=== PATIENT | male | born 1935 | race Caucasian/White ===

== ENCOUNTER 2021-08-17 07:15 | Inpatient (IN) | payer MEDICARE, OTHER ==
[~2021-08-17] VITALS: Ht 170.2 cm; Wt 91.6 kg
[~2021-08-17 07:15] MED LIST: COLCRYS0.6 MG PO; FOLIC ACID1 MG PO; KEFLEX500 MG PO; LISINOPRIL10 MG PO; METOPROLOL SUCC50 MG PO; VITAMIN B-12100 MCG PO; VITAMIN D250 MC1 PO
--- OUTSIDE RECORDS SUMMARY | 2021-08-17 07:18 | XMS ---
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 Hans has no Care Guidelines for this patient. Mohit VISIT COUNT (12 MO.) 2 [facility] [place] H. TOTAL 2 NOTE: Visits indicate total known visits. [place] [place] 08/17/2021 07:16 [facility] [place] TYPE: Emergency COMPLAINT: - DIFFICULTY BREATHING 08/12/2021 17:43 [facility] [place] TYPE: Emergency COMPLAINT: - STOMACH PAIN INPATIENT VISIT TRACKING (12 MO.) 08/12/2021 17:44 [facility] [place] TYPE: Observation COMPLAINT: - ELEVATED LFTS, ACUTE RENAL INJURY, TRANSIENT HYPO DIAGNOSES: - Acute and subacute hepatic failure without coma - Essential (primary) hypertension - Acute kidney failure, unspecified - Unspecified atrial fibrillation - Hypotension, unspecified [email or web address]
--- NOTE | 2021-08-17 10:00 | NUR ---
CURRENTLY ON NC AT 4 LITERS. USED BIPAP FOR APPROX HALF HOUR.
--- NOTE | 2021-08-17 11:30 | NUR ---
PATIENT ARRIVES TO CCU VIA STRETCHER FROM ER. DE IS VISIBLE JAUNDICED UPON ARRIVAL, TACHYPNEIC, AND LABORED BREATHING. PT HELPED TO MOVE TO CCU BED X 3 PERSON ASSIST. PT STATES, "I'VE FELT BETTER" WHEN ASKED HOW HE IS FEELING. PATIENT IN AFIB ON MONITOR, HR IN THE 90s. PT HAS PERALES DRAINING CONCENTRATED ORANGE URINE. TEMP 99.9 ORAL, 100.5 PER TEMP PROBE PERALES. PT TO BE STARTED ON LR AT 200 ML/HR, AND IV CEFEPIME TO BE STARTED. PT STATES HE WISHES TO BE A DNR/DNI AND DOES NOT WANT ANYONE ELSE TO MAKE ANY DECISIONS FOR HIS MEDICAL CARE. DR. LOERA NOTIFIED. CONTINUE TO MONITOR.
--- NOTE | 2021-08-17 12:39 | NUR ---
DR. LOERA CALLED AND GIVEN AN UPDATE ON PT'S TEMP OF 102.7 PERALES TEMP, AND HIS BREATHING OF 30s PER MINUTE. TYLENOL TO BE ORDERED FOR PATIENT.
--- NOTE | 2021-08-17 13:40 | NUR ---
PATIENT'S BLOOD PRESSURE CONTINUES TO DROP. MOST RECENT PRESSURE 82/44 (55). PT STILL BREATHING FAST, 30 BREATHS/MIN. DR. LOERA UPDATED AND CPAP ORDERED. RT CALLED AND NOW IN ROOM SETTING UP CPAP. NEW IV PLACED IN LEFT AC, 1 3/4 IN 20 G CATHETER. NOREPINEPHRIN STARTED AT 4 MCG/MIN INTO THIS VEIN.
--- NOTE | 2021-08-17 14:43 | NUR ---
PATIENT WORE CPAP FROM [phone] AND TOLERATED WELL. PT ASKING TO TAKE IT OFF TO TAKE A DRINK OF WATER, WHICH HE WAS HELPED WITH. PT STILL BREATHING FAST, CURRENTLY 40-47. WILL PLACE PATIENT BACK ON CPAP SOON.
--- NOTE | 2021-08-17 17:05 | NUR ---
PATIENT WANTING TO GET UP TO BSC TO ATTEMPT TO HAVE A BM. PT VERY SLOW TO MOVE AND NEEDED 2 PERSON ASSIST TO STAND TO PIVOT. PT UNABLE TO HAVE A BM. LINEN CHANGED HOWEVER WHEN UP OUT OF BED. PT'S FEVER HAS BROKE AND NOW 99.9 PER TEMP PROBE PERALES. PT SEEMS A LITTLE BETTER COMPARED TO WHEN HE FIRST CAME IN. WILL CONTINUE TO MONITR. URINE OUTPUT REMAINS LOW AND MONITORING THIS HOURLY.
--- NOTE | 2021-08-17 19:43 | NUR ---
REPORT RECEIVED FROM FRANCIA RN, PT LAYING IN BED AT THIS TIME IVF INFUSING AT ORDERED RATE, LEVOPHED ON AT 3MCG/MIN. PT REQUESTED TO BE REPOSITIONED UP ON THE BED. SARINA CURIEL IN TO ASSIST IN REPOSITIONING PT AND THEN SITTING HIM UP IN BED. PT REPORTS NO FURTHER NEEDS AT THIS TIME WHEN ASKED, CALL LIGHT IN REACH, BED IN LOWEST POSITION. WILL CONTINUE PLAN OF CARE.
--- NOTE | 2021-08-17 20:12 | NUR ---
PT SITTING IN BED SEMIFOWLERS DROWSY BUT AWAKES EASILY AND IS ORIENTED X 4. PT ON 3L O2 NC, SPO2 95-98%. PT DENIES HAVING ANY PAIN OR SHORTNESS OF BREATH AT THIS TIME. LEVOPHED AT 3MCG/MIN, IVF INFUSING AT 200MLS/HR ORDERED (SEE MAR). VITALS TAKEN AND LEVOPHED TITRATED DOWN TO 2MCG/MIN MAPS WERE CONSISTENTLY ABOVE 70MMHG. PT THEN ASSESSED. PT EYES PERRLA AND APPEAR SLIGHTLY YELLOW. PT RESPIRATIONS AT 30-40/MIN, SHALLOW, AND PT APPEARS SHORT OF BREATH BUT DENIES DIFFICULTY BREATH OR FEELING SOB. LUNGS CLEAR IN UPPER LOBES AND DIMINISHED WITH CRACKLES IN THE BASES BILATERALLY. BOWEL TONES ACTIVE, ABDOMEN SOFT, PT DENIES PAIN WHEN PALPATED. RADIAL AND PEDAL PULSES STRONG, EXTREMITIES WARM, BRISK CAPILLARY REFILL PRESENT. PT PLACED ON CPAP AT 10 AND FIO22 OF 35% DUE TO SHALLOW RESPIRATIONS AND RESPIRATORY RATE OF 35-40. PERALES DRAINING ORANGE/YELLOW URINE WITH SEDIMENT. 90ML OBTAINED FOR THE HOUR. PT NOW RESTING IN BED ON THE CPAP AND REPORTS NO FURTHER NEEDS WHEN ASKED. CALL LIGHT IN REACH, BED IN LOWEST POSITION, IVF AND LEVOPHED INFUSING, WILL CONTINUE PLAN OF CARE.
--- NOTE | 2021-08-17 21:25 | NUR ---
DR. LOERA NOTIFIED OF PTS VITALS AND ASSESSMENT REGARDING PT BEING DROWSY BUT EASILY AROUSABLE AND ORIENTED X4, PT'S RR OF 35-40 AND NOW BEING ON THE CPAP, AND LUNG SOUNDS/CRACKLES IN THE BASES. NEW ORDERS GIVEN TO CHANGE IVF RATE TO 150 MLS/HR AND CHANGE PT'S CPAP TO BIPAP IF NEEDED. PT IVF RATE CHANGED TO 150ML/HR AT THIS TIME AND NEW BAG OF LR STARTED. PT SITTING UP IN BED ON THE CPAP AT PREVIOUS SETTINGS, SPO2 100%. PT DENIES SOB BUT RESPIRATIONS APPEAR LABORED AND ARE AT 35-40/MIN. PT REPORTS NO FURTHER NEEDS AT THIS TIME WHEN ASKED, CALL LIGHT IN REACH, BED IN LOWEST POSTIION, WILL CONTINUE PLAN OF CARE.
--- NOTE | 2021-08-17 22:50 | NUR ---
PT RESTING IN BED SLEEPING. PT AWOKE EASILY, APPEARS DROWSY, BUT IS STILL ORIENTED. PT DENIES HAVING ANY PAIN AT THIS TIME AND DENIES SHORTNES OF BREATH. RR NOTED TO STILL BE 35-40. PT HEAD OF BED LOWERED PER HIS REQUEST. IVF AND LEVOPHED STILL ON AT PREVIOUS RATES, MAPS RANGING FROM 65 TO 75 ON THE 2MCG/MIN. RT IN TO ASSESS PT, PT PLACED ON BIPAP 35% FIO2, IPAP 14 EPAP 6. PT NOTED TO HAVE PERIODS OF SLOW SHALLOW BREATHING/ HYPOEVENTILATION. SPO2 REMAINS AT 99-100%. DR. LOERA NOTIFIED AFTERWARDS THAT PT IS NOW ON THE BIPAP, RT NOTIFIED DR. LOERA OF PT'S PERIODS OF HYPOVENTILATION. NO NEW ORDERS AT THIS TIME, WILL CONTINUE PLAN OF CARE. CALL LIGHT IN REACH, BED IN LOWEST POSTION.
--- NOTE | 2021-08-17 23:15 | NUR ---
PT LAYING IN BED SLEEPING ON THE BIPAP, SETTINGS UNCHANGED, SPO2 98-100%. LEVOPHED TITRATD DOWN TO 1 MCG/MIN MAPS WERE ABOVE 70 MMHG. PT ASSESSMENT THEN COMPLETED. PT AWAKES EASILY BUT IS DROWSY. PT FOLLOWS DIRECTIONS AND IS ORIENTED. PT DENIES HAVING ANY PAIN AT THIS TIME AND REPORTS NO SOB WHEN ASKED. LUNGS CLEAR IN UPPER LOBES AND DIMINISHED IN THE BASES, PERIODS OF HYPOVENTILATION STILL NOTED, SPO2 REMAINS AT 100% (SEE CHART). PT REPORTS NO FURTHER NEEDS AT THIS TIME WHEN ASKED, PERALES DRAINING, CALL LIGHT IN REACH, BED IN LOWEST POSITION, WILL CONTINUE PLAN OF CARE.
--- NOTE | 2021-08-17 23:33 | NUR ---
PT BIPAP ALARMING, PT HAD TAKEN BIPAP OFF, SPO2 94%, PT AWAKE AND INFORMED TO LEAVE BIPAP ON, PT WILLING TO PLACE IT BACK ON, SPO2 NOW 96%, RR 30. LEVOPHED ALSO TITRATED UP TO 2MCG/MIN MAPS WERE BELOW 65. PT REPORTS NO FURTHE RNEEDS AT THIS TIME, WILL CONTINUE PLAN OF CARE.
--- NOTE | 2021-08-18 01:39 | NUR ---
PT SITTING UP IN BED AWAKE AND ALERT ON 3L O2 NC. SPO2 98-100%. PT DRINKING WATER AT THIS TIME. LEVOPHED AND IVF INFUSING AT PREVIOUS RATES. PT REPORTS NO NEEDS AT THIS TIME WHEN ASKED. WILL CONTINUE PLAN OF CARE. CALL LIGHT IN REACH, BED IN LOWEST POSITION.
--- NOTE | 2021-08-18 02:27 | NUR ---
PT LAYING IN BED ON 3L O2 NC, SPO2 100%. RR 28-35 AT THIS TIME, PT AWAKE AND ALERT. PT FORGETFUL TO MONTH BUT ORIENTED TO EVENT, SELF, YEAR, LOCATION. PT DENIES HAVING ANY PAIN OR SHORTNESS OF BREATH WHEN ASKED. PT SAT UP PER HIS REQUEST AND PROVIDED WITH ICE WATER. PERALES DRAINED OF 290ML. PT REPORTS NO FURTHER NEEDS AND IS SITTING UP IN BED FOWLERS PER HIS REQUEST DRINKING WATER. WILL CONTINUE PLAN OF CARE. CALL LIGHT IN REACH, BED IN LOWEST POSITION, IVF INFUSING ORDERED, LEVOPHED STILL AT 2MCG/MIN, MAPS RANGING 65-75 MMHG.
--- NOTE | 2021-08-18 03:20 | NUR ---
PT SITTING UP IN BED ON 3L O2 NC AT THIS EDDA, SPO2 99%. PT AWAKE AND ALERT. ASSESSMENT COMPLETED AT THIS TIME (SEE CHART). RESPIRATIONS NOTED TO BE SHALLOW AND AROUND 35-40/MIN. PT DENIES SHORTNESS OF BREATH WHEN ASKED BUT RESPIRATIONS APPEAR LABORED. PT PLACED BACK ON THE BIPAP AT THE PREVIOUS SETTINGS, FIO2 35%. PT NOW ON THE BIPAP LAYING IN BED. IVF AND LEVOPHED INFUSING AT PREVIOUS RATES. PT REPORTS NO FURTHER NEEDS WHEN ASKED, WILL CONTINUE PLAN OF CARE. CALL LIGHT IN REACH, BED IN LOWEST POSITION.
--- NOTE | 2021-08-18 05:50 | NUR ---
PT LAYING IN BED AWAKE. LAB IN TO DRAW LABS. THIS RN PULLED LABS FROM PT'S IV AND WERE GIVEN TO TRANS ROUTER. PT CURRENTLY ON THE BIPAP AT PREVIOUS SETTINGS, SPO2 100%. PERALES TEMP NOTED TO BE 99.8-99.9, AXILLARY TEMPERATURE ASSESSED AND WAS 100. PRN TYLENOL GIVEN FOR PT'S ELEVATED TEMPERATURE, PT ABLE TO TAKE PO MEDICATION AND DRINK WATER WITHOUT DIFFICULTY. PT LEFT OFF OF THE BIPAP AND PLACED ON 3L O2 NC, SPO2 REMAINS 100%, RR 24-30, PT DENIES SOB. PT REPOSITIONED UP ON THE BED, PILLOW PLACED UNDER LEFT HIP. SCD'S TAKEN OFF PER PT'S REQUEST. PERALES STILL DRAINING ORANGE URINE. PT ALERT AND ORIENTED AT THIS TIME, SKIN STILL JAUNDICED, EYES STILL HAVE A YELLOW TINT. PT'S IVF AND LEVOPHED ON AT PREVIOUS RATE, MAPS RANGING FROM 68-75 MMHG. PT PROVIDED WITH ICE WATER AT THIS TIME. PT REPORTS NO FURTHER NEEDS AT THIS TIME WHEN ASKED. CALL LIGHT IN REACH, BED IN LOWEST POSITION, WILL CONTINUE PLAN OF CARE.
--- NOTE | 2021-08-18 06:12 | NUR ---
PT SITTING UP IN BED AWAKE AND ALERT ON 3L O2 NC. PT HOB LOWERED PER PT'S REQUEST. LEVOPHED TITRATED DOWN TO 1 MCG/MIN MAPS HAVE BEEN CONSISTENTLY ABOVE 70MMHG. PT REPORTS NO FURTHER NEEDS AT THIS TIME, WILL CONTINUE PLAN OF CARE.
--- NOTE | 2021-08-18 07:00 | NUR ---
DR. LOERA NOTIFIED OF PT'S VITALS, ASSESSMENT, AND LABS. NEW ORDERS GIVEN FOR 2 GM MAGNESIUM SULFATE IV (SEE MAR). THIS RN IN, MAGNESIUM STARTED, LEVOPHED INCREASED TO 2MCG/MIN MAP WAS BELOW 65 (SEE MAR/CHART). PT REPORTS NO FURTHER NEEDS AT THIS TIME AND REMAINS ON THE BIPAP. IVF INFUSING ORDERED, WILL CONTINUE PLAN OF CARE.
--- NOTE | 2021-08-18 07:19 | EKG ---
[facility] [address] [place], [place] [address] Signed Atrial fibrillation Left bundle branch block Abnormal ECG When compared with ECG of 14-AUG-2021 10:32, No significant change was found Confirmed by ANDREIA LOERA MD ([id number]) on 08/18/2021 7:19:10 AM Electronically Signed By: ANDREIA LOERA MD 08/18/21 0719 PATIENT NAME: EDUARD ELIAS Electrocardiogram DATE OF : 37 PHYSICIAN: ANDREIA LOERA MD REPORT #: [id number] REPORT IS CONFIDENTIAL AND NOT TO BE RELEASED WITHOUT AUTHORIZATION
--- NOTE | 2021-08-18 08:00 | NUR ---
Spoke with pt. States he lives with his daughter, she is ill and has been shipped to a higher level of care. He states his sister in law Vanita Bledsoe will assist him. His son, Diego, also lives in town and can assist, but he works. Pt feels he can go home on discharge, in live s in a 1 story house without steps. He has a walk in shower and does not feel he will need assist. His sister in law will grocery shop and assist if he has any needs.
--- NOTE | 2021-08-18 08:12 | NUR ---
DR. LOERA IN TO SEE PATIENT AT 0800. PT TAKEN OFF BIPAP AND PLACED ON 3 L NC SO HE CAN TALK. PT STILL TACHYPNEIC, BREATHING 29-35. SP02 IS 95% AT THIS TIME. PT STATES HE FEELS OKAY, BUT ENDORSES WEAKNESS STILL. CLEAR LIQUID TRAY PROVIDED FOR PATIENT. HR IN THE 80-90s AT THIS TIME. TEMP PROBE PERALES READING 101.1 AND AXILLARY IS 100.6 AT THIS TIME. IV MAG AND LR INFUSING, WELL LEVOPHED AT 2 MCG/MIN. LAST BP 93/62 (70). SCDs ARE OFF AT THIS TIME. EDEMA IN LEGS IS MILD AT THIS TIME. PERALES STILL DRAINING CONCENTRATED BILI STAINED URINE. PLAN TO RETEST PATIENT FOR COVID THIS AM. CONTINUE TO MONITOR. LUNGS HAVE EXP WHEEZING THROUGHOUT.
--- NOTE | 2021-08-18 08:20 | NUR ---
RT COLLECTED RAPID COVID 19 SWAB WITH NO COMPLICATIONS AT THIS TIME.
--- NOTE | 2021-08-18 08:33 | NUR ---
PATIENT COVID SWABBED AGAIN PER RT AND TOLERATED WELL. PT EATING CLEAR LIQUID TRAY AND TOLERATING FAIRLY WELL. CONTINUE TO MONITOR CLOSELY.
--- NOTE | 2021-08-18 10:25 | NUR ---
PATIENT'S VISITOR LIBRA IN ROOM AT THIS TIME. PT STARTED ON IV FLAGYL. PATIENT HAS BEEN RESTING. SP02 IS 97% ON 2 L, THEREFORE TURNED DOWN TO 1 L NC. LAST BP 127/64 AND IF IT STAYS LIKE THAT, WILL TITRATE DOWN LEVOPHED. CURRENTLY INFUSING AT 6 MCG/MIN. CONTINUE TO MONITOR. RR STILL ELEVATED, CURRENTLY 30 BUT IS LESS TACHYPNEIC THAN BEFORE. CONTINUE TO MONITOR.
--- NOTE | 2021-08-18 11:20 | NUR ---
PATIENT'S BLOOD CULTURE RESULTS FROM BEING DRAWN 08/17/21 AT 0737 AND 0740 NOW SHOWING GRAM NEGATIVE RODS IN BOTH AEROBIC AND ANAEROBIC BOTTLES. DR. LOERA NOTIFIED IN PERSON IN CCU. PT NOW ON FLAGYL AND IV CEFEPIME. PT RESTING. PT HAS NOT NEEDED BIPAP SUPPORT YET TODAY BUT WILL CONTINUE TO MONITOR. PT CURRENTLY ON 1 L NC AND SP02 IS 94%.
--- NOTE | 2021-08-18 13:26 | NUR ---
PATIENT TURNED ONTO LEFT SIDE AND LINEN UNDERNEAT HIM WAS CHANGED. RED BOTTOM WAS PHOTOGRAPHED. PT NOTED TO HAVE SOME SMALL PINPOINT SIZED BLISTERS STARTING ON HIS LOWER BACK/COCCYX AREA. SMALL BLISTER NOTED ON BACKSIDE OF SCROTUM WELL. WILL CONTINUE TO MONITOR. SCDs ON. PT CONTINUES TO HAVE PRODUCTIVE COUGH AND SPUTUM SAMPLE SENT TO LAB. WILL CONTINUE TO MONITOR. LEVOPHED REMAINS ON A 4 MCG/MIN.
--- NOTE | 2021-08-18 14:43 | NUR ---
PATIENT HELPED TO REPOSITION TO RIGHT SIDE. PATIENT STATES HE IS PAINFUL IN HIS BACK AND ALL OVERALL. ENCOURAGED PATIENT TO KEEP MOVING FROM SIDE TO SIDE. HELPED TO POSITION WITH A PILLOW BEHIND BACK AND BETWEEN KNEES. URINE OUTPUT OVER LAST 4 HRS WAS 625, WHICH IS MARKEDLY BETTER THAN IT WAS YESTERDAY. IVF CONTINUE AT 150 ML/HR. LEVOPHED IS INFUSING AT 4 MCG/MIN AND WILL SEE ABOUT TITRATING DOWN TOLERATED. CONTINUE TO MONITOR CLOSELY.
--- NOTE | 2021-08-18 18:03 | NUR ---
DR. LOERA UPDATED ON PATIENT'S EXP WHEEZING AND LUNG SOUNDS. CHEST XRAY ORDERED. UPDATED THAT PATIENT IS ALSO STARTING TO HAVE A FEVER.
--- NOTE | 2021-08-18 19:45 | NUR ---
PATIENT REPORTING BACK PAIN IN LEFT LOWER BACK. WORSE WITH HOB UP, PATIENT REQUESTING TO LAY FLAT. ASSISTED PATIENT TO REPOSITION. PATIENT ASKING FOR MELETONIN AND SOMETHING TO HELP HIS BACK. PATIENT'S BREATHING IS MILDLY LABORED, RR 35. O2 SAT 94% ON ROOM AIR. CONGESTED WET COUGH NOTED. LUNG SOUNDS ARE COARSE. ABD IS MILDLY DISTENDED, PATIENT DENIES GI UPSET. PERALES CARE DONE, PATIENT HAS GOOD OUTPUT, COLOR IS STILL ORANGE.
--- NOTE | 2021-08-18 20:30 | NUR ---
CALLED OVER TO MS UNAVAILABLE. LEFT MESSAGE TO HAVE HER CALL CCU. 2044; SPOKE TO ABOUT PATIENT'S CONCERNS. PRN OXY AND MELETONIN ORDERED. PRN NEBS. ORDERS INPUT BY .
--- NOTE | 2021-08-18 21:00 | NUR ---
REPOSITIONED PATIENT TO LEFT SIDE. COCCYX ALYVEN PLACED ON PATIENT, PICTURES IN CHART OF RED AREAS AND SMALL BREAK DOWN. PATIENT PROVIDED PRN MEDS. WARM PACK APPLIED TO THE AREA OF PAIN ON LEFT HIP. ASSISTED PATIENT TO WASH HIS FACE AND ORAL CARE DONE. PATIENT'S BREATHING IS LABORED AND WET SOUNDING. CALL TO RT FOR BIPAP AND NEB TREATMENTS. VS STABLE, NOREPI AT 2 MCG/MIN.
--- NOTE | 2021-08-18 21:39 | NUR ---
PATIENT ON BIPAP NOW WITH NEB TREATMENT IN-LINE PER RT. PATIENT'S RR 28, SPO2 97%.
--- NOTE | 2021-08-18 22:00 | NUR ---
PATIENT CONTINUES TO REPORT PAIN 10/10 IN HIS BACK. STATES "I'VE NEVER HURT SO BAD". APPEARS SLIGHTLY RESTLESS. PATIENT OFF BIPAP, REPORTS IT UNCOMFORTABLE. SECOND DOSE OF OXY PROVIDED. ATTEMPTS TO POSITION THE PATIENT FOR COMFORT.
--- NOTE | 2021-08-18 22:49 | NUR ---
PATIENT NOT TOLERATING 3L NC. RR 38, SP02 87%. BREATHING CONTINUES TO APPEAR LABORED AND COARSE BREATH SOUNDS. PATIENT HAS HAD NO RELIEF OF LOWER BACK PAIN. POSITIONED TO HIS BACK WITH HIPS FLOATED, HOB ELEVATED. ALYVEN PLACED ON PATIENT'S NOSE FOR PADDING. BIPAP PLACED ON PATIENT AT 30% Fi02. SPO2 INCREASED TO 97%. RR 25. PATIENT'S HR 90'S, AFIB. NOREPI AT 2 MCG/MIN. MAP >65
--- NOTE | 2021-08-18 23:30 | NUR ---
PATIENT ON BIPAP, 30% Fi02. SP02 98%, RR 23. BREATHING IS UNORGANIZED AND PATIENT DOES NOT APPEAR RESTFUL. EYES ARE CLOSED, HANDS WONDERING. PATIENT ALERTS VERY EASY. CONTINUES TO REPORT BACK PAIN. NOREPI UP TO 3 MCG/MIN. IVF PER ORDER, SITE WNL. ADEQUATE URINE OUTPUT. PERALES TEMP DOWN TO 99.6 F.
--- NOTE | 2021-08-19 00:23 | NUR ---
PATIENT APPEARS TO BE SLEEPING SOUNDLY NOW. DOES NOT WAKE WITH RN IN ROOM. BIPAP IN USE, SPO2 98% WITH RR 25. NOREPI UP TO 4 MCG/MIN TO MAINTAIN ADEQUATE BP. HR 80'S, A.FIB. PERALES TEMP DOWN TO 99.1F. IV FLUIDS PER ORDER, SITE WNL. ADEQUATE URINE OUTPUT.
--- NOTE | 2021-08-19 02:19 | NUR ---
PATIENT CONTINUES TO REST PEACEFULLY. RR 22, SPO2 90% ON BIPAP 30% Fi02. ADEQUATE URINE OUTPUT. NOREPI AT 3 MCG/MIN. IV FLUIDS PER ORDER, SITE WNL. PERALES TEMP DOWN TO 98.8 F. HR 70-80, A.FIB.
--- NOTE | 2021-08-19 02:59 | NUR ---
PATIENT CONTINUES TO SLEEP SOUNDLY. VS STABLE. ADEQUATE URINE OUTPUT. CONTINUES TO WEAR BIPAP. NOREPI TITRATED TO 3 MCG/MIN. IV SITE WNL.
--- NOTE | 2021-08-19 04:29 | NUR ---
PATIENT WOKE AROUND 0400. BIPAP OFF, PATIENT TOLERATING RA. HAS MOIST BREATH SOUNDS AND LOOSE COUGH. PROVIDED WITH SIPS OF WATER. PATIENT IS MORE ALERT NOW. STILL UNCOMFORTABLE IN THE BED AND BACK HURTING. PROVIDED PATIENT 10 MG OXY. 2PA PATIENT UP TO THE RECLINER. PATIENT WAS ABLE TO STAND AND PIVOT TO THE RECLINER. POSITIONED PATIENT FOR COMFORT IN THE RECLINER. 3L NC FOR ACTIVITY. PATIENTS RR 25-30. BP CUFF SWITCHED TO FORARM CUFF ON RIGHT SIDE. LARGE BRUISING ON RIGHT UPPER ARM. NOREPI AT 3 MCG/MIN. PERALES EMPTIED. PATIENT REPORTS BEING MORE COMFORTABLE. QUICKLY FALLS TO SLEEP. CALL LIGHT IN LAP.
--- NOTE | 2021-08-19 05:30 | NUR ---
UNABLE TO DRAW FROM IV SITE FOR MORNING LABS. LAB ABLE TO DRAW VERY SMALL AMOUNT. PATIENT IS MORE ABSET, LETHARGIC. RESPONDS TO HIS NAME AND SAYS "FINE" WHEN ASKED IF HE IS OKAY. PATIENT APPEARS TO BE MODERATELY SOB, WITH HARSH COUGHING AND CHOKING. PATIENT'S SPO2 NOT READING WELL. SWITCHED TO EAR PROBE, READYS 85% ON 3L NC. PATIENT SWITCHED TO BIPAP AND RT CALLED FOR NEB. PATIENT RR 30. SPO2 97% ON BIPAP. BREATHING IS DISORGANIZED AND LABORED.
--- NOTE | 2021-08-19 06:45 | NUR ---
UPDATE PROVIDED TO . ORDERS RECEIVED FOR DC IVF AND 20 IV LASIX ONCE.
--- NOTE | 2021-08-19 09:15 | NUR ---
PATIENT RESTING COMFORTABLY IN THE CHAIR. REPOSITIONED FOR COMFORT.
--- NOTE | 2021-08-19 10:51 | NUR ---
DISCUSSED FAILED BEDSIDE SWALLOW EVALUATION WITH DR. LOERA, SPEECH THERAPY CONSULT INITIATED. SPEECH THERAPY REPORTING NO COVERAGE UNTIL SUNDAY AT THIS TIME. DR. LOERA NOTIFIED OF NO SPEECH THERAPY.
--- NOTE | 2021-08-19 11:07 | NUR ---
PATIENT LEGS ELEVATED WHILE IN CHAIR WITH PILLOWS. REPORTS BEING MORE COMFORTABLE AFTER TURNING MORE TO HIS LEFT SIDE
--- NOTE | 2021-08-19 12:48 | NUR ---
FULL BEDBATH COMPLETED, PATIENT AMBULATED WITH SHUFFLING GAIT TO BED WITH 2 ASSIST. PT WITH VESICULAR RASH ON LOWER LUMBAR REGION, APPROX 2 CM IN LENGTH. ALLEVYN PLACED ON SACRAL REGION. PATIENT IN BED CURRENTLY FOR PICC LINE PLACEMENT DUE TO CONTINUED VASOPRESSOR USE.
--- NOTE | 2021-08-19 13:55 | NUR ---
PICC INSERTION NOTE. ORDERS RECIEVED TO EVALUATE EDUARD FOR BETTER IV ACCESS. AFTER REVIEWING THE CHART AND INTERVIEWING THE PATIENT NO ABSOLUTE CONTRAINDICATIONS WERE FOUND. THE RELATIVE CONTRAINDICATION OF LOW PLATELETS WAS DISCUSSED WITH DR LOERA PRIOR TO DECISION MAKING. RISKS AND COMPLICATIONS OF PICC INSERTION WERE DISCUSSED WITH THE PATIENT WELL HIS PRIMARY CCU NURSES AND INFORMED CONSENT WAS SIGNED BY THE PATIENT PRIOR TO THE START OF THE PROCEDURE. THE RIGHT ARM WAS EVALUATED WITH U/S AND THE RIGHT BRACHIAL VEIN WAS SEEN TO BE LARGE ENOUGH TO ACCEPT A 4 FR PICC WHICH WAS ESTIMATED BY BESSIE GORDON TO TAKE UP 27% OF THE VESSEL. THE RIGHT BASILIC VEIN WAS SMALL BY COMPARISON AND A 4 FR PICC WOULD HAVE TAKEN UP GREATER THAN 50% OF THE VESSEL SO IT WAS ABANDONED. IV PRESSORS ARE RUNNING IN THE LEFT UPPER ARM VEINS AND THEY HAVE CONSTRICTED SOMEWHAT MAKING INSERTION ON THE LEFT PROBLEMATIC. THE RIGHT BRACHIAL VEIN WAS ACCESSED ON THE FIRST ATTEMPT. CARE WAS TAKEN TO AVOID THE BRACHIAL NERVE WELL BRACHIAL VEIN. THERE WERE NO DIFFICULTIES ADVANCING THE IV, GUIDEWIRE, OR INTRODUCER. THE PICC LINE ADVANCED UP THE FIRST 15 CM WITHOUT DIFFICULTY BEFORE ENCOUNTERING RESISTANCE IN THE AREA OF THE SHOULDER. MULTIPLE PASSES WERE ATTEMPTED AND A POSITION CHANGE WAS ULTIMATELY SUCESSFULL IN GETTING THE LINE TO ADVANCE TO A CENTRAL LOCATION. A CHEST XRAY WAS TAKEN AND THIS NURSE JUDGED THE PICC TO BE INSERTED TOO FAR. THE LINE WAS WITHDRAWN 3 CM AND A SECOND CXR WAS TAKEN SHOWING THE PICC IN A MORE SUITABLE LOCATION. WE AWAIT RESULTS FROM RADIOLOGY FOR THE OFFICAL TIP POSITION. THE PICC DRESSING IS NONSTANDARD. QUIK CLOT HEMOSTATIC GAUZE IS USED IN THE STERILE DRESSING INSTEAD OF THE USUAL BIO PATCH. A LIGHT PRESSURE DRESSING IS PLACED OVER THE INSERTION SITE IN AN ATTEMPT TO ENSURE HEMOSTASIS. REPORT IS GIVEN AND THE PRIMARY NURSES WILL BE CHECKING FREQUENTLY FOR EXCESSIVE BLEEDING.
--- NOTE | 2021-08-19 14:00 | NUR ---
PATIENT RESTING IN BED, TURNED ONTO LEFT SIDE WITH PILLOWS UNDER ARMS AND LEGS. NO COMPLAINTS AT THIS TIME.
--- NOTE | 2021-08-19 18:03 | NUR ---
DISCUSSED PATIENT CASE WITH DR. CAMPBELL. PATIENT IN ROOM RESTING, TURNED TO BACK TO VIEW VESICULAR RASH IN LUMBAR/SACCRAL REGION. PENDING ANTICIPATED ORDERS PER MD.
--- NOTE | 2021-08-19 18:20 | NUR ---
Update from rn, pt had PICC placed. Unchanged. No plan for dc today.
--- NOTE | 2021-08-19 23:58 | NUR ---
PT COUGHS AFTER ALL ORAL INTAKE. MEDICATIONS CRUSHED AND ADMINISTERED IN PUDDING. PT COMPLAINS OF 9/10 BACK PAIN, PT PROMPTLY FALLS ASLEEP AND SNORES BEFORE RN LEAVES ROOM. NO ADDITIONAL PAIN MEDICAION GIVEN AT THIS TIME. PT REMAINS ON LEVOPHED TO MAINTAIN MAPS ABOVE 65, CURRENLTY INFUSING AT 4 MCG/MIN. WILL CONTINUE TO MONITOR.
--- NOTE | 2021-08-20 00:30 | NUR ---
PT ABDOMEN MODERATELY DISTENDED, HYPOACTIVE BOWEL TONES. ENEMA ORDERED. PT UP TO CHAIR FOR PAIN CONTROL.
--- NOTE | 2021-08-20 06:56 | NUR ---
PT BACK TO BED. ABDOMEN IS SEVERLY DISTENDED AND FIRM. ENEMA ADMINISTERED AND SCHEDULED BOWEL CARE ORDERED.
--- NOTE | 2021-08-20 08:48 | NUR ---
LEVOPHED ON STANDBY AT THIS TIME. LAST BP 129/56 (71). WILL CONTINUE TO MONITOR CLOSELY.
--- NOTE | 2021-08-20 09:22 | NUR ---
IN PATIENT'S ROOM SINCE 0800 THIS AM PROVIDING CARES. PATIENT WAS LAYING ON LEFT SIDE AND HAD RECENTLY RECENTLY ENEMA. PT DID HAVE SMALL AMOUNT OF LIQUID STOOL IN ATTENDS AND THIS WAS CHANGED. PATIENT THEN REPOSITIONED IN BED X 2 PERSON ASSIST AND SAT FULLY UPRIGHT. PT STILL C/O PAIN IN HIS BACK AND UNCOMFORTABLE IN THE BED. PT RATES PAIN 9/10. STILL SLIGHLTY TOO EARLY TO GIVE NEXT DOSE OF PAIN MEDICATION BUT WILL GIVE IT SOON. SCDs ON. PT IS LESS JAUNDICED THEN LAST TIME THIS RN CARED FOR PATIENT ON SUNDAY. PT WAS ON 2 MCG/MIN OF LEVOPHED BUT THIS WAS TITRATED OFF AROUND 0830 DUE TO BLOOD PRESSURES BEING SATISFACTORY. HR IN THE 80s AFIB. IV IN LEFT AC D/C DUE TO IRRTATION AND PALPABLE HARDNESS TO VEIN BP CUFF RIGHT OVERTOP OF THIS IV SITE. PT ABLE TO DRINK WATER WHILE SITTING STRAIGHT UP WITHOUT ANY DIFFICULTY OF TROUBLE SWALLOWING. PT ALSO FED SELF SOME YOGURT THIS AM AND DID WELL WITH THIS. PT ABLE TO SWALLOW PILLS W/O DIFFICULTY. CALL LIGHT WITHIN REACH. WARM BLANKET PROVIDED. WILL CONTINUE OT MONITOR CLOSELY.
--- NOTE | 2021-08-20 10:09 | NUR ---
MARGARET PLACED BACK ON LEVOPHED AT 2 MCG/MIN AT THIS TIME. PT'S SISTER IN [facility] IN ROOM VISITING WITH PATIENT AND GIVEN AN UPDATE. PT RESTING AT THIS TIME. LAST PB WAS 83/45 (58). SCDs ON. CONTINUE TO MONITOR CLOSELY.
--- NOTE | 2021-08-20 12:03 | NUR ---
LEVOPHED TITRATED UP TO 3 MCG/MIN AT THIS TIME. LAST MAP WAS 64. PT RESTING AND APPEARS FAIRLY COMFORTABLE, HOWEVER WHEN ASKED, HE STATES HE IS STILL HAVING PAIN IN HIS BACK. WILL OFFER PAIN MEDICATION. CONTINUE TO MONITOR. ASSESSMENT COMPLETE AND UNCHAGNED FROM PREVIOUS THIS AM.
--- NOTE | 2021-08-20 13:17 | NUR ---
DR. CAMPBELL IN ROOM TO SEE PATIENT. PLAN OF CARE BEING DISCUSSED. PROSTATE EXAM PERFORMED BY DR. CAMPBELL. PT TO RECEIVE ADDITIONAL DOSE OF IV LASIX AND PO POTASSIUM. PT REMAINS ON ROOM AIR. LEVOPHED IS CURRENTLY INFUSING AT 3 MCG/MIN. PT NOW LAYING ON LEFT SIDE. SCDs ON.
--- NOTE | 2021-08-20 14:31 | NUR ---
PATIENT GIVEN 20 MG IV LASIX AND 40 MEQ PO POTASSIUM. PT TOLERATED WELL. PERALES DRAINING CLEAR YELLOW URINE AT THIS TIME. CONTINUE TO MONITOR.
--- NOTE | 2021-08-20 15:22 | NUR ---
PATIENT RESTING AT THIS TIME. URINE IS CLEAR AND MORE DILUTE THAN BEFORE AFTER LASIX ADMIN. PT ON 4 MCG/MIN OF LEVOPHED, BUT MAY BE ABLE TO TITRATE BACK SINCE LAST BP WAS 103/54 (71). WILL CONTINUE TO MONITOR. PT REMAINS ON ROOM AIR AND SP02 IS 94%.
--- NOTE | 2021-08-20 16:30 | NUR ---
THIS RN IN TO ASSESS PATIENT. PATIENT HAS BEEN RESTING IN BED. PATIENT HAS FAMILY AT THE BEDSIDE AT THIS TIME. PATIENT DENIES ANY NEEDS. BREATH SOUNDS CLEAR. PATIENT REMAINS ON RN. BOWLE TONES ACTIVE. NO BM NOTED. PERALES EMPTIED. WILL CONTINUE TO CLOSELY MONITOR.
--- NOTE | 2021-08-20 19:02 | NUR ---
PATIENT AT THIS TIME. PT REMAINS ON LEVOPHED AT 2 MCG/MIN. PER DR. CAMPBELL, TITRATE OFF LEVOPHED TO MAP >65 OR SBP >90. LAST BP 99/59 (69). SCDs ON.
--- NOTE | 2021-08-20 19:43 | NUR ---
PT RESTING QUIETLY AND WAKES TO EASILY TO VOICE. LUNG SOUNDS COARSE THROUGHOUT, NONPRODUCTIVE COUGH. PT IS ON RA WITH SATS MAINTAINING HIGH 90S. ABDOMEN IS DISTENDED, SOFT, WITH HYPERACTIVE BOWEL TONES. PT REMAINS ON LEVOPHED TO MEET ORDER PERAMITERS. WILL TITRATE APPROPRIATE. PT REPORTS 3/10 PAIN BUT DENIES NEED FOR INTERVENTION AT THIS TIME. EDUCATED ON MONITORING PAIN AND LET RN KNOW BEFORE PAIN BECOMES UNBEARABLE. PT VERBALIZES UNDERSTANDING AND DRIFT TO SLEEP AFTER ASSESSMENT. WILL CONTINUE TO MONITOR.
--- NOTE | 2021-08-20 21:32 | NUR ---
PT UP TO CHAIR WITH FWW FOR COMFORT.
--- NOTE | 2021-08-20 23:52 | NUR ---
PRN OXYCODONE ADMINISTERED FOR PAIN. WARM BLANKETS PROVIDED. PT DENIES FURTHER NEEDS AT THIS TIME. WILL CONTINUE TO MONITOR.
--- NOTE | 2021-08-21 00:07 | NUR ---
LEVOPHED TITRATED OFF AT THIS TIME. WILL CONTINUE TO MONITOR AND RESTART INDICATED.
--- NOTE | 2021-08-21 01:25 | NUR ---
PT HEARD MOANING. PT REPORTS PAIN THAT IS NOT IMPROVED WITH CURRENT PRN OXYCODONE ORDER. PT ASKED RN SEVERAL TIMES TONIGHT TO JUST LET HIM . RN STATED SHE WOULD NOTIFY MD TO INCREASE PAIN MEDICATION. PT STATES HE WANTS RN TO GIVE HIM "SOMETHING TO KILL ME". DR. CAMPBELL NOTIFIED AND OXYDONDONE ORDERS MODIFIED, SEE ORDERS.
--- NOTE | 2021-08-21 02:05 | NUR ---
LEVOPHED INFUSION RESTARTED FOR CONTINUED BOARDERLINE LOW BPS. BP NOW 84/31 WITH MAP OF 47. PT IS NOW RESTING QUIETLY EYES CLOSED 40 MINUTES POST 5 MG OXYCODONE.
--- NOTE | 2021-08-21 06:25 | NUR ---
LEVOPHED TITRATED OFF AT THIS TIME. PT REMAINS SLEEPING. ABDOMEN APPEARS LESS DISTENDED SINCE LAST ASSESSMENT, SOFT, ACTIVE BOWEL TONES. WILL CONTINUE TO MONITOR.
--- NOTE | 2021-08-21 06:51 | NUR ---
LEVOPHED RESTARTED D/T SBP BELOW 90 AND MAP BELOW 65
--- NOTE | 2021-08-21 07:31 | NUR ---
REPORT REC'D FROM DIVING BOARD ASSEMBLER AND PLAN OF CARE RESUMED. PATIENT SLEEPING AT THIS TIME. LEVOPHED TURNED TO STANDBY AT 0728 AND WAS INFUSING AT 1 MCG/MIN. BP 104/50 (65). PT TO HAVE LABS DRAWN THIS AM AROUND 0800. CONTINUE TO MONITOR CLOSELY.
--- NOTE | 2021-08-21 08:10 | NUR ---
PATIENT ASLEEP AT THIS TIME. PT DOES AWAKEN EASILY TO VOICE, BUT DRIFTS BACK TO SLEEP FAIRLY QUICKLY. PT REMAINS OFF LEVOPHED AT THIS TIME AND LAST BP 92/61 (69). PT'S BLOOD DRAWN AT 0800 AND DOSE OF CORTOSYN GIVEN. NEXT LAB DRAWN AT 0837, AND THEN AGAIN AT 0907. PERALES DRAINING CONCENTRATED URINE.
--- NOTE | 2021-08-21 10:19 | NUR ---
PATIENT CONTINUES TO REST AT THIS TIME. PT ABLE TO TAKE HIS MEDS THIS AM WITH STRAWBERRY ENSURE, AND TOLERATED WELL. PT ATE 10% OF HIS BREAKFAST BUT DIDN'T WANT ANY MORE THAN THAT. WILL CONTINUE TO MONITOR.
--- NOTE | 2021-08-21 10:55 | NUR ---
DR. CAMPBELL IN ROOM TO SEE PATIENT AT THIS TIME. PT'S SON IN [place] IN ROOM VISITING WITH PATIENT.
--- NOTE | 2021-08-21 13:17 | NUR ---
PATIENT UP TO CHAIR X2 PERSON ASSIST. PT MOVING FAIRLY WELL, BUT STILL OVERALL TIRED. PHYS THERAPY TO COME WORK WITH PATIENT TODAY. PT DOES NOT WANT TO EAT LUNCH. URINE IS VERY CONCENTRATED. WILL CONTINUE TO MONITOR.
--- NOTE | 2021-08-21 14:29 | NUR ---
PHYS THERAPY IN ROOM WITH PATIENT AT THIS TIME. PT WANTING TO GO BACK TO BED.
--- NOTE | 2021-08-21 14:35 | NUR ---
DR. CAMPBELL NOTIFIED OF URINE OUTPUT OVER THE LAST 4 HOURS WHICH WAS 135 ML. PT'S ORAL INTAKE TODAY SEEMS SLIGHTLY LESS THAN YESTERDAY. PT REMAINS OFF LEVOPHED. WILL CONTINUE TO MONITOR.
--- NOTE | 2021-08-21 14:52 | NUR ---
PATIENT BACK TO BED AND NOW RESTING. SP02 IS 97% ON ROOM AIR. 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 LAST BP 104/48 (63). LEVOPHED OFF. SCDs ON. CALL LIGHT WITHIN REACH. BLANKETS PROVIDED.
--- NOTE | 2021-08-21 16:09 | NUR ---
PATIENT RESTING AT THIS TIME. PT DENIES HAVING ANY PAIN, AND DRIFTS BACK TO SLEEP EASILY AFTER A COUPLE OF MINUTES. ASSESSMENT UNCHANGED FROM PREVIOUS. LEVOPHED REMAINS OFF AND PT REMAINS ON ROOM AIR. URINE OUTPUT REMAINS LOWER AND CONCENTRATED. CONTINUE TO MONITOR.
--- NOTE | 2021-08-21 19:51 | NUR ---
PT RESTS QUIETLY EYES CLOSED. DROWSY BUT ORIENTED TO PERSON, PLACE, MONTH/YEAR. PT DOESN'T REMEMBER REASON FOR BEING IN HOSPITAL BUT UNDERSTANDS THAT HE IS ILL. ABDOMEN IS MODERATELY DISTENDED WITH ACTIVE BOWEL TONES. NONTENDER ON PALPATION. COARSE DIMINISHED LUNG SOUNDS THROUGHOUT. PT ON RA WITH SATs 98-99%. BPs LOWER, BUT MEETING GOALS AND LEVOPHED REMAINS OFF AT THIS TIME. PT DENIES PAIN. WILL CONTINUE TO MONITOR.
--- NOTE | 2021-08-21 23:59 | NUR ---
PT REPOSITIONED AND COMPLAINS OF 5/10 BACK PAIN. PRN OXYCODONE ADMINISTERED. LUNG SOUNDS IMPROVED, MOSTLY CLEAR EXCEPT FOR CRACKELS BILAT POSTERIOR BASES. VSS. WILL CONTIUE TO MONITOR.
--- NOTE | 2021-08-22 03:33 | NUR ---
RN CHECKED ON PT WHO WAS LAYING AWAKE STARING AT WALL. PT STATES "UNPLUG ME, LET ME ", "IT'S TIME TO GO". PT REPEATS THESE WORDS SEVERAL TIMES TO RN. RN PROVIDED EMOTIONAL SUPPORT AND REASSURED PT THAT IF HIS HEART STOPS WE WILL NOT ATTEMPT TO SAVE HIM PER HIS DNR/DNI STATUS. PT DENIES PAIN AND DECLINES REPOSITIONING IN BED, STATES "JUST LEAVE ME HERE AND LET ME ". TONIGHT IS THE THIRD CONSECUTIVE NIGHT THAT PT HAS PLEADED TO THIS RN FOR HIS LIFE TO END. PT WOULD BENEFIT FROM GOALS OF CARE DISCUSSION. WILL DISCUSS RECOMMENDATION WITH DAY SHIFT RN FOR FOLLOW UP AND SEND SECURE MESSAGE TO PROVIDER.
--- NOTE | 2021-08-22 04:55 | NUR ---
RN ASKED PT "WHEN YOU GO HOME, IF YOU GET SICK WOULD YOU LIKE TO COME BACK TO THE HOSPITAL, OR STAY HOME AND PASS AWAY AT HOME?". PT STATES "I WOULD WANT TO STAY HOME AND ". RN ASKED ABOUT HIS KNOWLEDGE OF HOSPICE AND RN EXPLAINED THIS SERVICE. PT STATES THAT HIS WAS ON HOSPICE AND THAT HE WOULD LIKE TO DISCUSS THIS OPTION. PT VOICED CONCERN ABOUT NOT KNOWING HOW TO START THIS PROCESS, RN ASSURED PT THAT HIS HEALTHCARE TEAM WOULD ASSIST SHOULD HE MAKE THE DECISION TO GO ON HOSPICE. PT DENIES FURTHER QUESTIONS AT THIS TIME.
--- NOTE | 2021-08-22 05:21 | NUR ---
OVERNIGHT PT HAS REMAINED IN SINUS RHYTHM WITH A 1ST DEGREE BLOCK, BBB, NOTCHED P WAVES, AND OCCATIONAL PACs AND PVCs.
--- NOTE | 2021-08-22 07:20 | NUR ---
ADMINISTRATIVE APPEALS TRIBUNAL MEMBER IN ROOM PERFORMING ECHO AT THIS TIME. PLAN OF CARE RESUMES. PT REMAINS IN A SINUS RHYTHM, HR 80s, 1ST DEGREE AV BLOCK. LAST BP AT 0600 WAS 116/59(75). CONTINUE TO MONITOR.
--- NOTE | 2021-08-22 08:30 | NUR ---
IN ROOM FOR ASSESSMENT, VITALS, BREAKFAST, AND SHORER. PT STATES, "JUST PULL THE PLUG ON ME, I WANT TO BE DONE WITH ALL OF THIS." DISCUSSED THIS WITH PATIENT AT LENGTH. PT REMAINS ALERT AND ORIENTED. PATIENT THEN HELPED UP TO BEDSIDE COMMODE X1 PERSON ASSIST, AND THEN INTO CHAIR. PT UNABLE TO HAVE A BM BUT DID HAVE A SMEAR. PT ABLE TO TAKE A FEW BITES OF BREAKFAST AND DRINK AN ENSURE, BUT NOT VERY HUNGRY. CALL LIGHT WITHIN REACH. PT WANTING SILENCE, NO TV, NOTHING FURTHER AT THIS TIME.
--- NOTE | 2021-08-22 08:51 | NUR ---
DR. CAMPBELL IN ROOM TO SEE PATIENT AT THIS TIME. PT'S SISTER IN [facility] IN ROOM WELL.
--- NOTE | 2021-08-22 09:26 | NUR ---
PATIENT'S PERALES CATH D/C AND [facility] PROVIDED. PT TOLERATED WELL. PT ALSO GIVEN A DOSE OF LACTULOSE. PT'S SISTER IN LAW REMAINS IN ROOM. CONTINUE TO MONITOR.
--- NOTE | 2021-08-22 09:47 | NUR ---
OT IN ROOM WORKING WITH PATIENT. PATIENT'S SISTER IN [place] LEAVES. PT WANTING TO GET BACK TO BED AFTER WORKING WITH OT. CONTINUE TO MONITOR.
--- NOTE | 2021-08-22 10:47 | NUR ---
PATIENT SITTING UP IN RECLINER. VITALS CHARTED. CALL LIGHT IN EASY REACH
--- NOTE | 2021-08-22 11:03 | NUR ---
PATIENT REMAINS SITTING UP IN CHAIR AT THIS TIME. LAST BP 114/55 (72) AND HR IN THE 80-90s, 1ST DEGREE AV BLOCK. CONTINUE TO MONITOR.
--- NOTE | 2021-08-22 11:15 | NUR ---
PATIENT USED CALL LIGHT TO ASK FOR ASSIST HELP TO BSC FOR BM. PATIENT GIVEN CALL LIGHT TO CALL WHEN FINISHED ON BSC.
--- NOTE | 2021-08-22 11:25 | NUR ---
CALL LIGHT ANSWERED, PATIENT FINISHED ON BSC, HAD LARGE BM, 2PA BACK TO CHAIR. CALL LGIHT IN EASY REACH
--- NOTE | 2021-08-22 12:21 | NUR ---
PATIENT UP TO BSC AGAIN TO HAVE ANOTHER BM. PT'S BM THIS TIME WAS MORE LIQUID THAN FORMED, BUT STILL HAD SOME FORMED AMOUNT IN IT. 2ND DOSE OF LACTULOSE TO BE HELD. PT ONLY ATE A COUPLE OF BITES OF HIS LUNCH, BUT IS DRINKING AN ENSURE. ASSESSMENT UNCHANGED. EDEMA IN DEPENDENT AREAS, LIKE HIPS, BACK/TORSO AND UPPER THIGHS. SCROTUM AND PENIS REMAINS EDEMATOUS WELL. PERALES D/C AROUND 1030 AND PT YET TO VOID. CONTINUE TO MONITOR. PT DENIES NEED TO VOID.
--- NOTE | 2021-08-22 12:41 | NUR ---
PATIENT AWAKE IN CHAIR, VITALS AND I&OS CHARTED. CALL LIGHT IN EASY REACH
--- NOTE | 2021-08-22 14:07 | NUR ---
PT SITTING IN CHAIR, ENJOYING THE SUNSHINE. PT IS [place], ANSWERS QUESTIONS APPROPRIATELY. PT HAS NO C/O PAIN AT THE MOMENT. DIDN'T SLEEP WELL. PT ALLOWED ME TO PRAY FOR HIM. GAVE G.POST AND BLESSING. WILL FOLLOW
--- NOTE | 2021-08-22 14:57 | NUR ---
PATIENT INCONTINENT OF STOOL. SAT ON BSC TO FINISH BM. BEDBATH AND GORDON CARE PROVIDED, DESENEX POWDER ALPPLIED IN GROIN AREA. PATIENT HAS NOT VOIDED SINCE PERALES WAS REMOVED EARLIER TODAY, BLADDER SCANNED AT THIS TIME BY SARINA CARTER. PATIENT BACK TO BED, LYING ON LEFT SIDE, C/O BACK PAIN. RN AWARE. CALL LIGHT IN EASY REACH, NO OTHER NEEDS AT THIS TIME
--- NOTE | 2021-08-22 15:28 | NUR ---
PATIENT UNCOMFORTABLE IN THE BED AND WANTING TO ROLL FROMHIS LEFT SIDE TO HIS BACK. PT RATES HIS PAIN IN HIS BACK A 7/10 AND WILLING TO TAKE PAIN MEDICATION AT THIS TIME ( SEE EMAR). PT SAT ALL THE WAY UP IN BED AND TOLERATED THIN LIQUIDS W/O DIFFICULTY. WILL CONTINUE TO MONITOR CLOSELY. PT REMAINS ON ROOM AIR. LAST BP 115/60 (77). PT DUE TO VOID BUT UNABLE TO OF YET. BLADDER SCANNED FOR 355 ML AT 1500.
--- NOTE | 2021-08-22 15:45 | NUR ---
Update from RN. Pt was able to have a BM today. Feeling better and is inproving. Was able to work with PT/OT.
--- NOTE | 2021-08-22 17:21 | NUR ---
SPEECH THERAPY IN TO SEE PATIENT. UNSURE OF RECOMMENDATIONS THIS RN DID NOT GET A CHANCE TO DISCUSS WITH HER.
--- NOTE | 2021-08-22 18:22 | NUR ---
PATIETN ATE A COUPLE BITES OF HIS FOOD, BUT NOT VERY MUCH. PT DID DRINK A STRAWBERRY ENSURE W/O DIFFICULTY. DIET ORDER PER SPEECH THERAPY CAN BE MINCED AND MOIST AND THIN LIQUIDS. PT REMAINS SITING UPRIGHT IN BED PER HIS REQUEST. CONTINUE TO MONITOR.
--- NOTE | 2021-08-22 19:34 | NUR ---
PT IS VERY SLEEPY AFTER BEING UP IN CHAIR TODAY. WAKES APPROPRIATELY. ABDOMEN IS ROUNDED AND SOFT. HYPERACTIVE BOWEL TONES. DEPENDENT EDEMA IN EXTREMITIES, BACKSIDE, THIGHS. VSS, PT REMAINS ON RA WITH SATs HIGH 90S. MILDLY TACHYPNEIC IN HIGH 20S BUT WORK OF BREATHING IS NORMAL. WILL CONTINUE TO MONITOR.
--- NOTE | 2021-08-22 22:24 | NUR ---
PT CALLS APPROPRIATELY TO USE URINAL. DENIES PAIN AND NEED FOR REPOSITIONING AT THIS TIME. WILL CONTINUE TO MONITOR.
--- NOTE | 2021-08-23 04:10 | NUR ---
PT HAS REMAINED ALSEEP THROUGHOUT NIGHT EXCEPT TO VOID. VSS. WILL CONTINUE TO MONITOR.
--- NOTE | 2021-08-23 05:10 | NUR ---
PT UP TO CHAIR. EXTREMETIES ELEVATED WITH PILLOW SUPPORT. [facility] C[facility] PROVIDED. PT DOES BECOME SOB AFTER GETTING TO EDGE OF BED WITH ASSISTANCE. PT UP WITH 2 PER PT REQUEST AND FWW, PT STANDS WITHOUT NEED FOR NURSING TO BEAR ANY OF HIS WEIGHT. DENIES NEEDS AT THIS TIME. WILL CONITNUE TO MONITOR.
--- NOTE | 2021-08-23 08:15 | NUR ---
Spoke with Will this am. Jaundiced today. Discussed if he feels he can go home, since his daughter is hospitalized. He states he needs to go some place. Asked if he would go to Shelter and he agrees. Will work on this when he gets closer to dc and is out of ccu.
--- NOTE | 2021-08-23 08:20 | NUR ---
PATIENT SITTING UP IN CHAIR UPON ASSESSMENT. PATIENT WAS RESTING WITH EYES CLOSED, BUT AWAKENS EASILY. PT STATES HE IS FEELING PRETTY GOOD AND ASKS, "WHAT DID THE BLOOD WORK SHOW THIS MORNING? WHAT ABOUT THE HEPATITIS?" PATIENT STATES THE YEAR INCORRECTLY, AND UNSURE OF THE MONTH, BUT AWARE THAT HE IS IN [facility] AND THAT HE IS SICK. REORIENTED TO DATE, TIME, AND CURRENT EVENTS RELATED TO HIS ILLNESS. ENCOURAGING PATIENT TO EAT THIS AM, AND TO FEED HIMSELF. PT HAS DIFFUSE EDEMA IN DEPENDENT AREAS, LEGS, THIGHS, HIPS, LOWER ABDOMEN, PENIS AND SCROTUM, ELBOW AREAS. PT STATES HIS PAIN IS WELL CONTROLLED AT THIS TIME. PT NOW FEEDING HIMSELF SOME CREAM OF WHEAT AND DRINKING A STRAWBERRY ENSURE. LAST BP 113/59 (76). LUNGS ARE CLEAR WITH DIMINISHED LOWER BASES POSTERIORLY. WILL CONTINUE TO MONITOR.
--- NOTE | 2021-08-23 09:00 | NUR ---
DR. CAMPBELL IN ROOM TO EVAL PATIENT. PATIENT WILL GO DOWN FOR MRCP TODAY OF LIVER TO EVAL FOR ANY POTENTIAL RETAINED STONES THAT MIGHT BE CAUSING HIS INCREASE IN LIVER ENZYMES AND INCREASED JAUNDICE. PT AGREEABLE AND ABLE TO FILL OUT SCREENIN EVAL. PT DOES NEED TO BE NPO UNTIL THIS SCAN. POTENTIAL TRANSFER TO MED/SURG THIS AFTERNOON.
--- NOTE | 2021-08-23 09:25 | NUR ---
PHYS THERAPY IN ROOM WORKING WITH PATIENT.
--- NOTE | 2021-08-23 09:42 | NUR ---
THIS MONITORING AND EVALUATION ADVISOR IN TO ASSIST P/T WITH PATIENT'S AMBULATION IN ROOM.
--- NOTE | 2021-08-23 11:54 | NUR ---
PATIENT REMAINS SITTING UP IN CHAIR AND DENIES NEEDS AT THIS TIME. PT HAS WORKED WITH BOTH PHYS THERAPY AND OCCUPATIONAL THERAPY TODAY. PT'S SON IN [place] HAS COME AND LEFT FOR A VISIT. PT TO GO DOWN FOR MRCP AT 1300 AND REMAINS NPO UNTIL THAT SCAN. IV MAG COMPETED AND PICC LINE FLUSHED AND SALINE LOCKED. CONTINUE TO MONITOR.
--- NOTE | 2021-08-23 14:53 | NUR ---
PATIENT RETURNS FROM [facility] AND WANTING TO GET BACK TO BED. PATIENT A 2 PERSON ASSIST AND INTO BED NOW TO REST. PT STATES HE IS TIRED AND WANTING TO REST. FOOD ORDERED FOR PATIENT BUT HE IS NOT VERY HUNGRY. WARM BLANKET PROVIDED BY [employer] USER INTERFACE DEVELOPER. CONTINUE TO MONITOR.
--- NOTE | 2021-08-23 16:17 | NUR ---
REPORT GIVEN TO SARINA HAYNES WHO WILL RESUME CARE OF PATIENT ON MED/SURG ROOM 121. PATIENT VOIDS TO URINAL 300 ML CONCENTRATED URINE. PT'S VISITOR [place] LEFT AGAIN FOR THE EVENING AND STATES HIS SISTER IN [place] WILL VISIT TOMORROW. LAST BP 113/57 (74).
--- NOTE | 2021-08-23 17:22 | NUR ---
PT TRANSFERED FROM CCU BY BED. FULL HEAD TO TOE ASSESMENT COMPLETE; VS TAKEN. DR. CAMPBELL IN ROOM TO PROVIDE PT WITH RESULTS OF MRCP; ABNORMAL FINDINGS AND ADVISED TO TRANSFER - PT STATES UNDERSTANDING. DINNER SERVICE DELIVERED - PT STATES "NOT HUNGRY" BUT REQUESTED STRAWBERRY ENSURE. DENIES PAIN AT THIS TIME.
--- NOTE | 2021-08-23 19:17 | NUR ---
THIS [place] ROOM SUPERVISOR CALLED [facility]' TRANSFER CENTER UPON DR. CAMPBELL'S REQUEST TO CHECK ON BED. TRANSFER CENTER SAID THERE IS NO BED CONFORMATION YET BUT WILL CALL SOON THEY HAVE A BED. CHARGE NURSE NOTIFIED.
--- NOTE | 2021-08-23 19:58 | NUR ---
REPORT RECEIVED FROM DAY SHIFT RN. PT LYING IN BED AWAKE. ASSISTED TO REPOSITION. IV ABX COMPLETE. PICC LINE SALINE LOCKED. PT DENIES FURTHER NEEDS. WHITE BOARD UPDATED. CALL LIGHT IN REACH.
--- NOTE | 2021-08-23 20:26 | NUR ---
PT CALLED, NEEDED TO USE URINAL, VOIDED 200, TEA COLORED URINE. PREFERED CURTAINS OPEN, CALL LIGHT IN HIS HAND.
--- NOTE | 2021-08-23 21:15 | NUR ---
CALL LIGHT ANSWERED. IN ROOM TO ASSIST PT TO REPOSITION TO RIGHT SIDE. ASSISTED WITH SIPS OF WATER.
--- NOTE | 2021-08-23 21:46 | NUR ---
FIRST CALL FOR TRANSPORT @ 2140, [facility].
--- NOTE | 2021-08-23 21:47 | NUR ---
[facility] DECLINED, [address], [facility] WILL CONTACT [facility].
--- NOTE | 2021-08-23 21:51 | NUR ---
CRITICAL CARE UNIT MANAGER VALERIA CONTACTED [facility]ED [facility] DECLINED DUE TO WEATHER, WE ARE SECOND ON LIST, AWAIT PHONE CALL.
--- NOTE | 2021-08-23 22:06 | NUR ---
PT SISTER IN [place] NOTIFIED OF PT IMPENDING TRANSFER TO [place], .
--- NOTE | 2021-08-23 22:11 | NUR ---
EVENING ASSESSMENT COMPLETE. SCHEDULED MEDS ADMINISTERED PER EMAR. PRN FOR CHRONIC BACK PAIN ADMINISTERED. 2PA TO REPOSITION IN BED. DEPENDENT EDEMA AND JAUNDICED SKIN NOTED. EXTREMITIES ELEVATED IN BED. PT WITH LOOSE NON PRODUCTIVE COUGH. HOB ELEVATED. PICC LINE FLUSHED WITH NS. BRISK BLOOD RETURN NOTED IN BOTH LUMENS. PT UPDATED ON TRANSFER STATUS. QUESTIONS ANSWERED. PT DENIES FURTHER NEEDS. CALL LIGHT IN REACH.
--- NOTE | 2021-08-23 23:20 | NUR ---
REPORT CALLED TO [facility] RN. PT OFF FLOOR WITH [facility]W AFTER REPORT GIVEN. PT BELONGINGS IN BAG ON STRETCHER.
== END 2021-08-23 23:27 | disposition short-term general hospital (02) | DRG 871 ==
LOC: ED 07:15 → CCU 09:56 → MS 09:56
PROVIDERS: ADMIT Internal Medicine; ATTEND Internal Medicine
PROC: 3E033XZ Introduction of Vasopressor into Peripheral Vein, Percutaneous Approach (ICD-10-PCS; principal; 2021-08-17)
PROC: 3E03329 Introduction of Other Anti-infective into Peripheral Vein, Percutaneous Approach (ICD-10-PCS; 2021-08-17)
PROC: 05HY33Z Insertion of Infusion Device into Upper Vein, Percutaneous Approach (ICD-10-PCS; 2021-08-17)
DX: A41.51 Sepsis due to Escherichia coli [E. coli] (principal); I50.23 Acute on chronic systolic (congestive) heart failure; R65.21 Severe sepsis with septic shock; K72.00 Acute and subacute hepatic failure without coma; Z66 Do not resuscitate; N17.9 Acute kidney failure, unspecified; E87.1 Hypo-osmolality and hyponatremia; B02.8 Zoster with other complications; N12 Tubulo-interstitial nephritis, not specified as acute or chronic; E87.2 Acidosis; K80.31 Calculus of bile duct with cholangitis, unspecified, with obstruction; Z20.822 Contact with and (suspected) exposure to COVID-19; R13.12 Dysphagia, oropharyngeal phase; E87.6 Hypokalemia; K59.00 Constipation, unspecified; I11.0 Hypertensive heart disease with heart failure; D69.6 Thrombocytopenia, unspecified; D64.9 Anemia, unspecified; I48.0 Paroxysmal atrial fibrillation; K76.1 Chronic passive congestion of liver; Z98.890 Other specified postprocedural states; Z79.899 Other long term (current) drug therapy
CPT/HCPCS: 36415; 36569; 71045; 74176; 74183; 80053; 80503; 81001; 82248; 82533; 83605; 83735; 83880; 84100; 84484; 85025; 85610; 86705; 86706; 86707; 86850; 86900; 86901; 87040; 87070; 87088; 87186; 87205; 87350; 87517; 92610; 93005; 93010; 93306; 94640; 94660; 97110; 97116; 97162; 97165; 97530; 99285-25; A9270; A9577; C1751; C9113; C9803; J0692; J0834; J1940; J1956; J3475; J7030; J7121; U0003